=== PATIENT | male | born 1985 | race African-American/Black ===

== ENCOUNTER 2016-04-29 21:39 | Emergency (ER) | payer OTHER ==
[2016-04-29 22:50] LABS: BASOPHIL 0.2 % (0-2); EOSINOPHIL 0 % (0-5); HCT 44.5 % (42.0-52.0); HGB 15.7 g/dl (13.2-18.0); MCH 29.4 pg (25.0-31.0); MCHC 35.3 g/dL (32.0-36.0); MCV 83.3 fL (78.0-100.0); MPV 9.4 fL (6.0-9.5); NEUTROPHIL 83.8 % (41-80); PLT 288 K/uL (150-400); RBC 5.34 M/uL (4.70-6.00); WBC 8.8 K/uL (4.0-10.5)
[2016-04-29 23:19] LABS: ALBUMIN 4.7 g/dL (3.5-5.0); BILIRUBIN - TOTAL 0.5 mg/dL (0.1-1.0); CREATININE 0.9 mg/dL (0.7-1.2); GLOBULIN (CALCULATION) 3.3 g/dL (2.2-4.2); POTASSIUM 3.7 mmol/L (3.5-5.1)
== END 2016-04-30 01:26 | disposition home or self-care (01) ==
LOC: FER 21:39
PROVIDERS: Emergency Medicine Emergency Medical Services
DX: S46.911A Strain of unspecified muscle, fascia and tendon at shoulder and upper arm level, right arm, initial encounter (principal); M62.830 Muscle spasm of back; I10 Essential (primary) hypertension
CPT/HCPCS: 36415; 71275; 80053; 84484; 85025; 93005; J1100; J1170; J1885; J2405; J2800; Q9967